=== PATIENT | male | born 1935 | race Caucasian/White ===

== ENCOUNTER 2017-01-28 06:35 | Day surgery (SDC) ==
[2015-03-09 10:31] VITALS: BMI 24.9
[2017-01-28] MEDS ORDERED: LIDOCAINE 1% 20 ML MDV ID ONE (07:20)
[2017-01-28] MEDS ORDERED: LIDOCAINE 1% 20 ML MDV ID STA (07:28)
[2017-01-28] MEDS ORDERED: ATROPINE SULFATE SDV IVP ONE (08:45)
[2017-01-28] MEDS ORDERED: DIPRIVAN 20 ML VIAL IVP ONE (08:45)
[2017-01-28] MEDS ORDERED: VERSED ONE (08:45)
[2017-01-28 09:34] VITALS: BP 125/63; TEMP 98
--- NOTE | 2017-01-29 08:04 | OP ---
PROCEDURE: COLONOSCOPY TO THE CECUM. ENDOSCOPIST: Fide ROSS M.D. INDICATION: HISTORY OF POLYPS LAST COLONOSCOPY: 5 YEARS PREVIOUS TO THIS EXAM INSTRUMENT: [id number]. MEDICATION: PER ANESTHESIA. PROCEDURE: The patient was positioned for colonoscopy. The digital rectal exam was negative. The colonoscope was inserted through the anus and advanced to the cecum. The patient again had mild bradycardia as we maneuvered through the left colon. One half amp of atrophin was given with appropriate response. The cecum was reached and identified using the ileocecal valve and the appendiceal orifice as landmarks. Careful inspection was made of each colonic segment. The scope was withdrawn in a circumferential fashion. Care was taken to expect the proximal side of the ileocecal valve, haustral fold, flexures and rectal valves. Diverticuli was seen in the colon and no other abnormalities were noted. The retroflex exam was negative. The patient was tolerated the procedure without immediate complication. PLAN: 1. At this point I suggest repeat colonoscopy as needed. 2. He can resume his Pradaxa today. 3. We will see on an as needed basis. CC: Dr. Gavino BELTRÁN
== END 2017-01-28 09:57 | disposition home or self-care (01) ==
LOC: SURG 06:35
PROVIDERS: ATTEND Internal Medicine Gastroenterology
DX: Z09 Encounter for follow-up examination after completed treatment for conditions other than malignant neoplasm (principal); Z86.010 Personal history of colon polyps; K57.30 Diverticulosis of large intestine without perforation or abscess without bleeding; R00.1 Bradycardia, unspecified

== ENCOUNTER 2017-03-27 17:39 | Emergency (ER) ==
[2017-03-27 17:46] VITALS: BMI 26.6
--- NOTE | 2017-03-27 18:33 | ED.PDOC ---
General Stated Complaint: painless hematuria Time Seen by Physician: 17:40 (painlesshematuria onset this morning) Mode of Arrival: Walk-In Information Source: Patient Exam Limitations: No limitations Referred to ED by: Other (seen with ruth at all times ) Nursing and Triage Documentation Reviewed and Agree: Yes Reviewed sepsis parameters & appropriate labs ordered?: Yes <ANNE-MARIE DURBIN - Last Filed: 03/27/17 18:30> <OKSANA VERDUGO - Last Filed: 03/27/17 20:04> ED Provider: Dr. OKSANA ROWLAND-ER Chief Complaint: Urinary Problem Primary Care Provider: OKSANA ROWLAND Sepsis Protocol: For patient's 13 years and over: Temp is 96.8 and below OR 101 and greater Pulse >90 BPM Resp >20/minute Acutely Altered Mental Status Are patient's symptoms suggestive of a new infection, such as: -Pneumonia -Skin, Soft Tissue -Endocarditis -UTI -Bone, Joint Infection -Implantable Device -Acute Abdominal Infection -Wound Infection -Meningitis -Blood Stream Catheter Infection -Unknown Complaint Exam - Complaint/Exam Onset/Duration: this morning 9 am painless hematuria on pradaxa for AFIB ABD HEART VALVE Symptoms Are: Resolved Timing: Intermittent Episodes of Voiding Over Last 12 Hours: 3 Initial Severity: Mild Current Severity: None Location of Pain: Reports: None Character: Reports: Bloody urine Aggravating: Reports: Voiding Alleviating: Reports: None Associated Signs and Symptoms: Reports: Hematuria. Denies: Diaphoresis, Back pain, Fever, Dysuria, Constipation, Blood in stool, Rectal pain, Appetite change , Nausea, Vomiting, Penile swelling, Penile discharge, Decreased urine output, Increased urine frequency, Increased thirst, Decreased activity, Lethargy, Scrotal pain, Scrotal swelling, Abdominal Pain Testicular Torsion Risk Factors: Reports: None Surgical Obstruction Risk Factors: Reports: None Related Surgical History: Reports: None Abdominal Findings: Present: None Prostate Exam: Nontender Differential Diagnoses: UTI, Ureteral Calculi, Other (RENAL CANCER , BLADDER CANCER , ) <ANNE-MARIE DURBIN - Last Filed: 03/27/17 18:30> Review of Systems - Review Of Systems Constitutional: Reports: No symptoms Eyes: Reports: No symptoms Ears, Nose, Mouth, Throat: Reports: No symptoms Respiratory: Reports: No symptoms Cardiac: Reports: No symptoms GI: Reports: No symptoms : Reports: Hematuria Musculoskeletal: Reports: No symptoms Skin: Reports: No symptoms Neurological: Reports: No symptoms Endocrine: Reports: No symptoms Hematologic/Lymphatic: Reports: No symptoms All Other Systems: Reviewed and Negative <ANNE-MARIE DURBIN - Last Filed: 03/27/17 18:30> Past Medical History - Past Medical History Previously Healthy: Yes Endocrine: Reports: Dyslipidemia Cardiovascular: Reports: CAD, Hypertension, A-Fib, Other (HEAR VALVE ) Respiratory: Reports: None Hematological: Reports: None Gastrointestinal: Reports: None Genitourinary: Reports: None Neuro/Psych: Reports: None Musculoskeletal: Reports: None Cancer: Reports: None - Surgical History General Surgical History: Reports: None - Family History Family History: Reports: None - Social History Smoking Status: Never smoker Hx Substance Use: No Alcohol Screening: None <ANNE-MARIE DURBIN - Last Filed: 03/27/17 18:30> Physical Exam - Physical Exam Appearance: Well-appearing, No pain distress, Well-nourished Eyes: BUSHRA, EOMI, Conjunctiva clear ENT: Ears normal, Nose normal, Oropharynx normal Respiratory: Airway patent, Breath sounds clear, Breath sounds equal, Respirations nonlabored Cardiovascular: RRR, Pulses normal, No rub, No murmur GI/: Soft, Nontender, No masses, Bowel sounds normal, No Organomegaly Musculoskeletal: Normal strength, ROM intact, No edema, No calf tenderness Skin: Warm, Dry, Normal color Neurological: Sensation intact, Motor intact, Reflexes intact, Cranial nerves intact, Alert, Oriented Psychiatric: Affect appropriate, Mood appropriate <ANNE-MARIE DURBIN - Last Filed: 03/27/17 18:30> Physician Notification - Case Discussed Physician Notified: PMD Time of Notification: 19:00 <ANNE-MARIE DURBIN - Last Filed: 03/27/17 18:30> Critical Care Note - Critical Care Note Total Time (mins): 0 <ANNE-MARIE DURBIN - Last Filed: 03/27/17 18:30> Course - Course Hematology/Chemistry: 03/27/17 18:39 03/27/17 18:39 <OKSANA VERDUGO - Last Filed: 03/27/17 20:04> - Course Orders, Labs, Meds: Lab Review 03/27/17 03/27/17 03/27/17 18:39 18:39 18:39 WBC 10.54 H RBC 3.98 L Hgb 13.2 L Hct 38.2 L MCV 96.0 H MCH 33.2 H MCHC 34.6 RDW Coeff of Ben 13.8 Plt Count 164 Immature Gran % (Auto) 1.1 Neut % (Auto) 50.4 Lymph % (Auto) 29.8 [place] % (Auto) 15.1 H Eos % (Auto) 2.8 Baso % (Auto) 0.8 Immature Gran # (Auto) 0.1 Neut # 5.3 Lymph # 3.1 [place] # 1.6 Eos # 0.3 Baso # 0.1 PT 14.9 H INR 1.48 APTT 51.8 H Sodium 139 Potassium 4.3 Chloride 110 H Carbon Dioxide 26 Anion Gap 7.3 BUN 26 H Creatinine 1.56 H Estimated GFR (MDRD) 43.00 BUN/Creatinine Ratio 16.66 Glucose 96 Calcium 9.1 Total Bilirubin 0.4 AST 23 ALT 19 Alkaline Phosphatase 47 L Total Protein 6.1 Albumin 3.4 Globulin 2.7 Albumin/Globulin Ratio 1.26 Urine Color Urine Clarity Urine pH Ur Specific [place] Urine Protein Urine Glucose (UA) Urine Ketones Urine Blood Urine Nitrite Urine Bilirubin Urine Urobilinogen Ur Leukocyte Esterase Urine Microscopic RBC Urine Microscopic WBC Ur Squamous Epith Cells 03/27/17 18:39 WBC RBC Hgb Hct MCV MCH MCHC RDW Coeff of Ben Plt Count Immature Gran % (Auto) Neut % (Auto) Lymph % (Auto) [place] % (Auto) Eos % (Auto) Baso % (Auto) Immature Gran # (Auto) Neut # Lymph # [place] # Eos # Baso # PT INR APTT Sodium Potassium Chloride Carbon Dioxide Anion Gap BUN Creatinine Estimated GFR (MDRD) BUN/Creatinine Ratio Glucose Calcium Total Bilirubin AST ALT Alkaline Phosphatase Total Protein Albumin Globulin Albumin/Globulin Ratio Urine Color Red Urine Clarity Turbid Urine pH >9.0 Ur Specific [place] 1.015 Urine Protein 3+ Urine Glucose (UA) 2+ Urine Ketones 4+ Urine Blood 3+ Urine Nitrite Pos Urine Bilirubin 3+ Urine Urobilinogen >8.0 Ur Leukocyte Esterase 3+ Urine Microscopic RBC Tntc Urine Microscopic WBC 0-2 Ur Squamous Epith Cells Not present Orders Category Date Time Status CBC W/ AUTO DIFF Stat LAB 03/27/17 18:39 Completed COMPREHENSIVE METABOLIC PANEL Stat LAB 03/27/17 18:39 Completed PARTIAL THROMBOPLASTIN TIME Stat LAB 03/27/17 18:39 Completed PT WITH INR Stat LAB 03/27/17 18:39 Completed URINALYSIS C & S IF INDICATED Stat LAB 03/27/17 18:[address] ABD/PEL WO RENAL STONE PROT Stat RADS 03/27/17 18:35 Completed Vital Signs: Temp Pulse Resp BP Pulse Ox 03/27/17 17:39 99.5 F 50 L 16 186/89 H 98 Departure - Departure Pt referred to PMD for follow-up: Yes IPMP verified?: Yes <ANNE-MARIE DURBIN - Last Filed: 03/27/17 18:30> - Departure Time of Disposition: 20:03 Transfer Form Completed: Yes Disposition Discussed With: Patient, Family <OKSANA VERDUGO - Last Filed: 03/27/17 20:04> - Departure Disposition: TSF SHORT-TRM HOSP Discharge Problem: Hematuria Qualifiers: Hematuria type: unspecified type Qualified Code(s): R31.9 - Hematuria, unspecified Instructions: Hematuria (ED) Condition: Good Additional Instructions: Please call your Family Physician as soon as possible to schedule a follow-up appointment. Allergies/Adverse Reactions: Allergies meperidine HCl [From Demerol] Adverse Reaction (Verified 03/27/17 17:49) metoclopramide [From Reglan] Adverse Reaction (Verified 03/27/17 17:49) sotalol HCl [From Betapace] Adverse Reaction (Verified 03/27/17 17:49) Home Medications: Ambulatory Orders Amlodipine Besylate [Norvasc] 5 mg PO BID 12/21/12 Atorvastatin Calcium [Lipitor] 10 mg PO DAILY 12/21/12 Dabigatran Etexilate Mesylate [Pradaxa] 150 mg PO DAILY 12/21/12 Lisinopril/Hydrochlorothiazide [Zestoretic 10-12.5 mg Tablet] 1 tab PO DAILY Montelukast Sodium [Singulair] 10 mg PO BEDTIME 12/21/12 Propafenone HCl [Rythmol] 300 mg PO Q12H 12/21/12 Allopurinol 300 mg PO DAILY 03/27/17 Hydrocodone Bit/Acetaminophen [H[place] 5-325] 1 each PO DIRECTED PRN 03/27/17 Metoprolol Tartrate [Lopressor] 25 mg PO BID 03/27/17
--- NOTE | 2017-03-27 19:56 | CT ---
EXAM: CT scan abdomen pelvis without contrast HISTORY: Hematuria COMPARISON: None. FINDINGS: Contiguous axial images obtained through the abdomen pelvis without contrast utilizing 3-m m collimation. Sagittal and coronal reconstructions were imaged and reviewed. The visualized lung ba ses are clear. There is small hiatal hernia. There has been prior cholecystectomy. Benign granulom atous changes are seen within the liver and spleen. "The pancreas and adrenal glands have normal une nhanced CT appearance. Multiple punctate nonobstructive calculi are seen within the left kidney. ". "There are multiple nonobstructive calculi within the right kidney, largest which measures 11 mm lo wer pole. Atherosclerotic changes are seen involving the aorta without aneurysm formation. Clips ar e seen adjacent to the cecum. There is a midline ventral hernia containing non incarcerated loop of transverse colon. . There is diverticulosis without diverticulitis.. 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 There is moderate prostatic enlargement. There is no free fluid. IMPRESSION: Nonobstructive bilateral nephrolithiasis. Prior cholecystectomy and probable appendectomy. Diverticulosis without diverticulitis. Midline ventral hernia containing non incarcerated loop of transverse colon. Moderate prostatic enlargement. Left-sided bladder diverticulum
[2017-03-27 20:12] VITALS: BP 167/55; TEMP 98.1
== END 2017-03-27 20:30 | disposition short-term general hospital (02) ==
LOC: ED 17:39
DX: R31.9 Hematuria, unspecified (principal); E78.5 Hyperlipidemia, unspecified; I25.10 Atherosclerotic heart disease of native coronary artery without angina pectoris; I10 Essential (primary) hypertension; I48.91 Unspecified atrial fibrillation; Z79.899 Other long term (current) drug therapy
CPT/HCPCS: 36415; 74176; 80053; 81001; 85025; 85610; 85730; 87086; 87186; 99285

== ENCOUNTER 2023-07-25 20:07 | Observation (INO) ==
[2023-07-25] MEDS: DUONEB NEB STA ×2 (20:23→22:13)
[2023-07-25] MEDS: CARDIZEM INJ IVP STA (20:24)
[2023-07-25 20:25] LABS: BASOPHILS # (AUTO) 0.1 K/uL (0-0.2); BASOPHILS % (AUTO) 0.7 % (0.0-3.0); EOSINOPHILS # (AUTO) 1.8 K/ul (0.0-0.7); EOSINOPHILS % (AUTO) 10.5 % (0.0-7.0); HEMATOCRIT 44.6 % (42.0-52.0); HEMOGLOBIN 14.3 g/dl (14.0-18.0); IMMATURE GRANULOCYTE # (AUTO) 0.1 (0.0-1.0); IMMATURE GRANULOCYTE % (AUTO) 0.7 % (0.0-5.0); LYMPHOCYTES # (AUTO) 5.7 K/uL (0.60-3.4); LYMPHOCYTES % (AUTO) 34.4 (10.0-50.0); MEAN CORPUSCULAR HEMOGLOBIN 32.6 pg (27.0-31.0); MEAN CORPUSCULAR HGB CONC 32.1 (31.8-35.4); MEAN CORPUSCULAR VOLUME 101.6 fl (80.0-94.0); MONOCYTES # (AUTO) 1.7 K/uL (0.4-2.0); MONOCYTES % (AUTO) 10.1 (0-10); NEUTROPHILS # (AUTO) 7.3 K/ul (2.0-6.9); NEUTROPHILS % (AUTO) 43.6 % (42.2-75.2); PLATELET COUNT 239 10^3/uL (140-440); RDW COEFFICIENT OF VARIATION 14.1 % (11.6-14.8); RED BLOOD COUNT 4.39 10^6/ul (4.70-6.10); WHITE BLOOD COUNT 16.65 K/ul (4.2-10.2)
[2023-07-25] MEDS: NITRO-BID TD STA (20:25)
[2023-07-25] MEDS: ASPIRIN CHEWABLE PO STA (20:25)
--- NOTE | 2023-07-25 20:33 | ED.PDOC ---
General ED Provider: Dr. ELLIOTT WOOD DO Chief Complaint: Shortness of Air Stated Complaint: 87-year-old male presents to the ER complaining of shortness of breath and chest pain. Started 2 hours prior to arrival. He said that he started coughing at home and then started to have chest pain that became persistent and he became progressively short of breath. He has a history of COPD, is not oxygen dependent, history of A-fib, takes an aspirin but states that he was taken off of other blood thinners. Chest pain is substernal nonradiating. No modifying factors. No treatment prior to arrival. Time Seen by Provider: 07/25/23 20:07 Mode of Arrival: Walk-In Primary Care Provider: OKSANA ROWLAND Nursing and Triage Documentation Reviewed and Agree: Yes What is Opioid Naive?: *Opioid Naive implies the patient is not already taking opioids or not chronically receiving opioids on a daily basis. *PRN dosing is not "usually" associated with tolerance. *Patients are at higher risk of over-sedation and aspiration. What is Opioid Tolerant?: *Opioid Tolerance implies less than the expected response to an opioid. *Acquired tolerance is defined by the patient taking 60mg of oral morphine daily (or equianalgesic dose of another opioid) for 1 week or more. *Often associated with chronic pain. *May take more than usual dose to achieve desired pain control. Review of Systems Review Of Systems Constitutional: Reports No symptoms All Other Systems: Reviewed and Negative [facility] Social History Smoking and tobacco status: Never smoker Physical Exam Physical Exam Appearance: Reports Ill-appearing and Well-nourished Ill-appearing: Severe Eyes: Reports BUSHRA, EOMI and Conjunctiva clear ENT: Reports Nose normal and Oropharynx normal Neck: Supple Respiratory: Reports Airway patent, Wheezes and Other (Accessory muscle use, broken sentences) Cardiovascular: Reports Irregular rhythm and Tachycardia Musculoskeletal: Reports Normal strength, ROM intact and No edema Skin: Reports Warm, Dry and Normal color Neurological: Reports Sensation intact, Motor intact, Alert and Oriented Psychiatric: Reports Affect appropriate and Mood appropriate Interpretation EKG Interpretation EKG Interpretation By: ED Physician Time of EKG #1: 20:16 Rate: Tachy Rhythm: Other (Atrial fibrillation with RVR) Ectopy: None [place]: [place] ST Segment: Normal Interpretation: A-fib RVR Critical Care Note Critical Care Note Total Critical Care Time (mins): 120 Comments: Critical care billing indicated for this patient with A-fib RVR requiring cardiac medications, constant cardiac monitoring, rate control medications, cardiac output measures, consideration of sepsis as well as thrombotic events as well as continuous breathing treatment and oxygen therapy Course Course 07/25/23 20:16 07/25/23 20:16 Orders, Labs, Meds: Lab Review 07/25/23 07/25/23 20:15 20:16 WBC 16.65 H RBC 4.39 L Hgb 14.3 Hct 44.6 MCV 101.6 H MCH 32.6 H MCHC 32.1 RDW Coeff of Ben 14.1 Plt Count 239 Immature Gran % (Auto) 0.7 Neut % (Auto) 43.6 Lymph % (Auto) 34.4 [place] % (Auto) 10.1 H Eos % (Auto) 10.5 H Baso % (Auto) 0.7 Neut # (Auto) 7.3 H Lymph # (Auto) 5.7 H [place] # (Auto) 1.7 Eos # (Auto) 1.8 H Baso # (Auto) 0.1 Immature Gran # (Auto) 0.1 PT 10.8 INR 1.04 APTT 28.1 Sodium 140.0 Potassium 3.42 L Chloride 104.2 Carbon Dioxide 30.0 Anion Gap 9.22 BUN 13.2 Creatinine 1.16 H Estimated GFR (MDRD) 60.00 BUN/Creatinine Ratio 11.37 Glucose 123.8 H Calcium 9.61 Magnesium 1.81 Total Bilirubin 0.52 AST 36.9 ALT 27.9 Alkaline Phosphatase 66.8 Troponin I < 0.012 NT-Pro-B Natriuret Pep 1460 H Total Protein 7.58 Albumin 4.44 Globulin 3.14 Albumin/Globulin Ratio 1.41 Influ A Molecular Assay Negative by naat Influ B Molecular Assay Negative by naat SARS CoV-2 RNA Rapid LEONOR Positive H Orders Category Date Time Status ADMIT OBSERVATION [PLACE PATIENT OBSERVATION] .TO ADMISSION 07/25/23 21:24 Ordered MEDSURG (MONITORED BED) EKG-(ED ONLY) Stat CARDIO 07/25/23 20:08 Completed NEBULIZER TREATMENT Stat CARDIO 07/25/23 20:11 Completed TELEMETRY MONITORING TELE CARE 07/25/23 21:24 Ordered CBC W/ AUTO DIFF Stat LAB 07/25/23 20:16 Completed CMP [COMPREHENSIVE METABOLIC PANEL] Stat LAB 07/25/23 20:16 Completed COVID [SARS COV-2 RNA RAPID LEONOR] Stat LAB 07/25/23 20:15 Completed ED PROBNP [NT-PROBNP(ED)] Stat LAB 07/25/23 20:16 Completed FLU A & B MOLECULAR [FLU A/B MOLECULAR] Stat LAB 07/25/23 20:15 Completed MAGNESIUM Stat LAB 07/25/23 20:16 Completed PT WITH INR Stat LAB 07/25/23 20:16 Completed PTT [PARTIAL THROMBOPLASTIN TIME] Stat LAB 07/25/23 20:16 Completed TROPONIN I Stat LAB 07/25/23 20:16 Completed Aspirin [Aspirin Chewable] Meds 07/25/23 20:07 Discontinued 324 mg PO ONCE STA Cefepime 2 gm/D5w [Maxipime 2 gm/50 ml D5w] Meds 07/25/23 21:20 Active 2 gm in 50 ml IV ONCE Diltiazem HCl [Cardizem Inj] Meds 07/25/23 20:15 Discontinued 20 mg IVP ONCE STA Furosemide [Lasix] Meds 07/25/23 21:24 Stat 20 mg IVP ONCE STA Ipratropium/Albuterol Neb [Duoneb] Meds 07/25/23 20:10 Discontinued 6 ml NEB ONCE STA Magnesium Sulfate [Magnesium Sulfate 1 gm/2 ml Vial] Meds 07/25/23 20:10 Discontinued 1 gm IVP ONCE ONE Methylprednisolone Sod Succ/Pf [Solu-Medrol 125 mg] Meds 07/25/23 20:10 Discontinued 125 mg IVP ONCE ONE Metoprolol Tartrate [Lopressor] Meds 07/25/23 20:41 Discontinued 10 mg IVP ONCE STA Nitroglycerin [Nitro-Bid] Meds 07/25/23 20:13 Discontinued 1 inch TD ONCE STA CHEST, 1V AP ONLY Stat RADS 07/25/23 20:08 Completed Medications Generic Name Dose Route Start Last Admin Trade Name Freq PRN Reason Stop Dose Admin CEFEPIME 2 GM/D5W 2 gm in 50 mls @ 100 mls/hr 07/25/23 21:20 Maxipime 2 Gm/50 Ml D5w IV 07/25/23 21:49 ONCE ONE Discontinued Medications Generic Name Dose Route Start Last Admin Trade Name Freq PRN Reason Stop Dose Admin Albuterol/Ipratropium 6 ml 07/25/23 20:10 07/25/23 20:23 Ipratropium/Albuterol Vial.Neb NEB 07/25/23 20:11 6 ml ONCE STA Administration Aspirin 324 mg 07/25/23 20:07 07/25/23 20:25 Aspirin 81 Mg Tab.Chew PO 07/25/23 20:08 324 mg ONCE STA Administration Diltiazem HCl 20 mg 07/25/23 20:15 07/25/23 20:24 Diltiazem Hcl Inj 25 Mg/5 Ml Vial IVP 07/25/23 20:16 20 mg ONCE STA Administration Magnesium Sulfate 1 gm 07/25/23 20:10 07/25/23 20:37 Magnesium Sulfate Vial 1 Gm/2 Ml Vial IVP 07/25/23 20:11 1 gm ONCE ONE Administration Methylprednisolone Sodium Succinate 125 mg 07/25/23 20:10 07/25/23 20:37 Methylprednisolone Sod Succ/Pf 125 Mg/2 Ml Vial IVP 07/25/23 20:11 125 mg ONCE ONE Administration Metoprolol Tartrate 10 mg 07/25/23 20:41 07/25/23 20:50 Metoprolol Tartrate 5 Mg/5 Ml Vial IVP 07/25/23 20:42 10 mg ONCE STA Administration Nitroglycerin 1 inch 07/25/23 20:13 07/25/23 20:25 Nitroglycerin 1 Gm Oint TD 07/25/23 20:14 1 inch ONCE STA Administration Vital Signs: Temp Pulse Resp BP Pulse Ox 07/25/23 20:09 98.3 F 127 H 37 H 207/160 H 88 L LUZ MARINA Risk Score LUZ MARINA Risk Score: Risk Score Odds of by 30D 0 0.1 (0.1-0.2) 1 0.3 (0.2-0.3) 2 0.4 (0.3-0.5) 3 0.7 (0.6-0.9) 4 1.2 (1.0-1.5) 5 2.2 (1.9-2.6) 6 3.0 (2.5-3.6) 7 4.8 (3.8-6.1) Physician Progress Note: 87-year-old male presents to the ER complaining of shortness of breath and chest pain. He has heart rate in the 130s to 150s. Suspect A-fib RVR. Will use diltiazem. Suspect chest pain is rate related. He is hypertensive on presentation therefore will place some nitroglycerin on his chest. Will keep a close eye on this. Will obtain laboratory workup to include cardiac enzymes and BNP. Will give breathing treatments. Consider positive pressure ventilation as needed. Afebrile nontoxic doubt infectious etiology to include sepsis. Unlikely other cardiopulmonary processes to include not limited to ACS, UT, PE, pneumothorax, dissection or tamponade. [] 2032: After giving 20 mg diltiazem, heart rate has come down to the low to mid 80s. Remains in atrial fibrillation. Tolerating the breathing treatment well. Oxygen saturation 100%. Blood pressure is improving. Currently 156/100. Patient states that he is feeling better. 2125: Patient appears better. Blood pressure is improved. Continues rate controlled. He does require supplemental oxygen. I discussed this with the hospital service who was gracious to accept for observation. Discharge Plan Discharge Patient Disposition: PLACED OBSERVATION Discharge Problem: Atrial fibrillation with rapid ventricular response, Shortness of breath, Chest pain, COVID Prescriptions: No Action atorvastatin 10 MG tablet 10 mg PO DAILY montelukast [Singulair] 10 MG tablet 10 mg PO BEDTIME allopurinol 300 MG tablet 300 mg PO DAILY metoprolol tartrate 25 MG tablet 25 mg PO BID aspirin 81 mg tablet,delayed release (DR/EC) 81 mg PO DAILY cranberry 1,000 mg capsule 1,000 mg PO DAILY Rx Instructions: administer with a meal ipratropium bromide 21 mcg (0.03 %) spray,non-aerosol 2 spray INTRANASAL BID Patient Comments: INSTILL 2 SPRAYS INTO EACH NOSTRIL EVERY 12 HOURS DIRECTED isosorbide mononitrate 60 mg tablet extended release 24 hr 60 mg PO TID Patient Comments: TAKE 1 TABLET BY MOUTH DAILY levothyroxine 50 mcg tablet 50 mcg PO DAILY lisinopril 20 mg tablet 20 mg PO DAILY azithromycin 250 mg tablet 250 mg PO DAILY Rx Instructions: Take 1 tablet by mouth daily. Take 2 tablets the first day, then 1 tablet daily for 4 days. Started 05/21/23 furosemide 20 mg tablet 20 mg PO BID Rx Instructions: For 3 days started 05/21/23 methylprednisolone 4 mg tablets,dose pack See Rx Instructions .ROUTE .COMPLEX Rx Instructions: Take per pkg directions; Take as directed on pkg instructions; started 05/21/23 potassium chloride 10 mEq tablet extended release 10 meq PO DAILY Rx Instructions: For 3 days; started 05/21/23 albuterol sulfate 90 mcg/actuation HFA aerosol inhaler 2 puff INHALATION Q4H PRN (Reason: shortness of breath or wheezing) levetiracetam 500 mg tablet 500 mg PO BID Did you review [place] [facility] CONSULTANT for ALL controlled substances?: Not Applicable ED Provider: ELLIOTT WOOD Condition: Stable
[2023-07-25 20:37] LABS: ALANINE AMINOTRANSFERASE 27.9 U/L (0-50); ALBUMIN 4.44 g/dL (3.5-5.0); ALKALINE PHOSPHATASE 66.8 U/L (56-119); ASPARTATE AMINO TRANSFERASE 36.9 U/L (17-59); BILIRUBIN,TOTAL 0.52 mg/dL (0.2-1.3); BLOOD UREA NITROGEN 13.2 mg/dL (9-20); CALCIUM 9.61 mg/dL (8.4-10.2); CHLORIDE 104.2 mmol/L (98-107); CREATININE 1.16 mg/dL (0.60-1.10); GLUCOSE 123.8 mg/dL (74-106); POTASSIUM 3.42 mmol/L (3.5-5.1); TOTAL PROTEIN 7.58 g/dL (6.3-8.2)
[2023-07-25] MEDS: SOLU-MEDROL 125 MG IVP ONE (20:37)
[2023-07-25] MEDS: MAGNESIUM SULFATE 1 GM/2 ML VIAL IVP ONE (20:37)
[2023-07-25 20:42] LABS: PARTIAL THROMBOPLASTIN TIME 28.1 SEC (23.9-40.0); PROTHROMBIN TIME 10.8 SEC (9.3-11.0)
[2023-07-25 20:49] LABS: TROPONIN I < 0.012 ng/ml (0.0000-0.120)
[2023-07-25] MEDS: LOPRESSOR IVP STA (20:50)
[2023-07-25 21:04] LABS: SARS COV-2 RNA RAPID NAAT POSITIVE (NEGATIVE)
[2023-07-25 21:06] LABS: MOLECULAR FLU A NEGATIVE BY NAAT (NEGATIVE); MOLECULAR FLU B NEGATIVE BY NAAT (NEGATIVE)
--- NOTE | 2023-07-25 21:16 | DI ---
EXAM: SINGLE VIEW OF THE CHEST. History: Chest pain, short of breath Findings: Heart size is upper limits of normal. Sternotomy wires. Artificial heart valve. No cons olidation. No pleural fluid and no pneumothorax. No acute osseous abnormalities. Impression: No acute cardiopulmonary process
[2023-07-25] MEDS ORDERED: ALBUTEROL 0.083% NEB NEB PRN (21:44)
[2023-07-25] MEDS ORDERED: TYLENOL PO PRN (21:47)
[2023-07-25] MEDS: LASIX IVP STA (22:40)
[2023-07-25] MEDS: MAXIPIME 2 GM/50 ML D5W 2 GM/50 ML BAG IV ONE (22:40)
[2023-07-25] MEDS: K-DUR PO ONE (23:02)
[2023-07-26] MEDS: DUONEB NEB SCH (00:04)
[2023-07-26] MEDS: KEPPRA PO SCH (00:10)
[2023-07-26 00:11] VITALS: BMI 26.6
[2023-07-26] MEDS: LOPRESSOR PO SCH (00:11)
[2023-07-26] MEDS: SOLU-MEDROL 40 MG IVP SCH (04:39)
[2023-07-26 05:17] LABS: BASOPHILS % (AUTO) 0.3 % (0.0-3.0); EOSINOPHILS % (AUTO) 0.1 % (0.0-7.0); HEMATOCRIT 40.6 % (42.0-52.0); HEMOGLOBIN 13.2 g/dl (14.0-18.0); IMMATURE GRANULOCYTE # (AUTO) 0.1 (0.0-1.0); IMMATURE GRANULOCYTE % (AUTO) 1.4 % (0.0-5.0); LYMPHOCYTES # (AUTO) 1.2 K/uL (0.60-3.4); MEAN CORPUSCULAR HEMOGLOBIN 32.9 pg (27.0-31.0); MEAN CORPUSCULAR HGB CONC 32.5 (31.8-35.4); MEAN CORPUSCULAR VOLUME 101.2 fl (80.0-94.0); MONOCYTES # (AUTO) 0.1 K/uL (0.4-2.0); MONOCYTES % (AUTO) 1.8 (0-10); NEUTROPHILS # (AUTO) 5.7 K/ul (2.0-6.9); NEUTROPHILS % (AUTO) 79.4 % (42.2-75.2); PLATELET COUNT 195 10^3/uL (140-440); RDW COEFFICIENT OF VARIATION 13.9 % (11.6-14.8); RED BLOOD COUNT 4.01 10^6/ul (4.70-6.10)
[2023-07-26 05:18] LABS: WHITE BLOOD COUNT 7.23 K/ul (4.2-10.2)
[2023-07-26 05:27] LABS: ALANINE AMINOTRANSFERASE 25.9 U/L (0-50); ALBUMIN 4.25 g/dL (3.5-5.0); ASPARTATE AMINO TRANSFERASE 31.6 U/L (17-59); BILIRUBIN,TOTAL 0.62 mg/dL (0.2-1.3); BLOOD UREA NITROGEN 13.9 mg/dL (9-20); CALCIUM 9.65 mg/dL (8.4-10.2); CARBON DIOXIDE 26.1 mmol/L (22-30.0); CHLORIDE 105.6 mmol/L (98-107); CREATININE 0.91 mg/dL (0.60-1.10); POTASSIUM 4.29 mmol/L (3.5-5.1); SODIUM 137.7 mmol/L (134.5-145); TOTAL PROTEIN 7.15 g/dL (6.3-8.2)
[2023-07-26] MEDS ORDERED: LEVAQUIN 500 MG/100 ML D5W 500 MG/100 ML BAG IV SCH (09:00)
--- NOTE | 2023-07-26 09:16 | PCM.SS ---
Provider Provider: ROWAN D ELA O, [facility] Admission Date Admission Date: 07/25/23 Discharge Date Discharge Date: 07/26/23 Primary Care Physician Primary Care Physician: OKSANA ROWLAND Chief Complaint Reason For Visit: AFIB W/ RVR, SOB, CHEST PAIN, COVID+ History of Present Illness History of Present Illness: Admitted 07/25/23 21:45, this 87 year old /WHITE/M presented to the ER last night with chest pain/shortness of breath. States that he started feeling "bad" around 1300 yesterday afternoon. Presented to the ER and was found to be in Afib RVR. He was given a dose of diltiazem that returned heart rate to normal. He was then given an additional dose of lopressor to continue to rate control. Rhythm remains in Afib. O2 sat was in upper 80s. Required 4L via NC to return O2 sat to upper 90s. He was given steroids, nebs, and cefepime. Admitted to med/surg observation. At this time, patient says his symptoms have resolved and he feels much better. 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) Skin cancer C44.90 - Unspecified malignant neoplasm of skin, unspecified (ICD-10) COPD (chronic obstructive pulmonary disease) J44.9 - Chronic obstructive pulmonary disease, unspecified (ICD-10) Hypertension I10 - Essential (primary) hypertension (ICD-10) Heart valve disease I38 - Endocarditis, valve unspecified (ICD-10) Coronary artery arteriosclerosis I25.10 - Atherosclerotic heart disease of hoh coronary artery without angina pectoris (ICD-10) Surgical History Hx of appendectomy Z90.49 - Acquired absence of other specified parts of digestive tract (ICD- 10) 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 (ICD-10) Social History Smoking and tobacco status: Never smoker Alcohol intake: never Medications Mecications: Medications at Discharge (Home Meds & RX) atorvastatin 10 mg tablet 10 mg PO DAILY 12/21/12 montelukast 10 mg tablet (Singulair) 10 mg PO DAILY 12/21/12 allopurinol 300 mg tablet 300 mg PO DAILY 03/27/17 metoprolol tartrate 25 mg tablet 37.5 mg PO BID 03/27/17 albuterol sulfate 90 mcg/actuation aerosol inhaler 2 puff inhalation Q4H PRN shortness of breath or wheezing 05/22/23 aspirin 81 mg tablet,delayed release 81 mg PO DAILY 05/22/23 ipratropium bromide 21 mcg (0.03 %) nasal spray 2 spray intranasal BID 05/22/23 isosorbide mononitrate 60 mg tablet,extended release 24 hr 60 mg PO DAILY 05/22/23 levetiracetam 500 mg tablet 500 mg PO BID 05/22/23 levothyroxine 50 mcg tablet 50 mcg PO DAILY 05/22/23 lisinopril 20 mg tablet 20 mg PO DAILY 07/26/23 Allergies Allergies Allergy/AdvReac Type Severity Reaction Status Date / Time meperidine HCl [From Demerol] AdvReac Unknown Verified 07/25/23 20:23 metoclopramide [From Reglan] AdvReac Unknown Verified 07/25/23 20:23 sotalol HCl [From Betapace] AdvReac Unknown Verified 07/25/23 20:23 Review of Systems Constitutional: Reports Fatigue Head: Reports Normocephalic Eyes: Reports No symptoms Ears: Reports No symptoms Nose: Reports No symptoms Mouth: Reports No symptoms Throat: Reports No symptoms Cardiovascular: Reports Chest pain, High Blood Pressure and Palpitations Respiratory: Reports Cough and Shortness of air Gastrointestinal: Reports No symptoms Genitourinary: Reports No Symptoms Musculoskeletal: Reports No symptoms Endocrine: Reports No symptoms Hematology: Reports No symptoms Immunology: Reports No symptoms Neurological: Reports No symptoms Psychiatric: Reports No symptoms Physical Examination Appearance: Positive No Apparent Distress and Alert and Oriented x3 Head: Positive Normocephalic Eyes: Positive BUSHRA Neck: Positive Supple, Non-Tender and Trachea Midline Heart: Positive RRR and No Murmurs Respiratory: Positive Airway patent, Breath Sounds Clear, Bilaterally, Breath Sounds Equal, Respirations Nonlabored and Wheezes (MILD, RIGHT UPPER LOBE) GI/: Positive Soft, Nontender, Bowel sounds normal and No Distention Extremities: Positive Pedal Pulses Palpable Bilaterally Neurological: Positive Sensation Intact, Motor Intact, Alert and Oriented Vital Signs (Last 4 Hours) Vital Signs Last 4 Hours: Vital Signs: Last 4 Hours 07/26/23 05:23 07/26/23 05:40 07/26/23 05:41 Temperature 97.3 F L Temperature Source Temporal Artery Scan Pulse Rate 82 Pulse Rate [Apical] Respiratory Rate 23 H Blood Pressure 133/90 Blood Pressure Mean 104 Blood Pressure Location Left Arm Blood Pressure Position Supine O2 Sat by Pulse Oximetry 97 Oxygen Delivery Method Nasal Cannula Nasal Cannula Oxygen Flow Rate 4 Weight 207 lb 5 oz Telemetry Type Telemetry Monitoring Irregular Telemetry Rate (Approximate) EKG QRS Interval Telemetry Strip Reading 07/26/23 05:42 07/26/23 07:00 07/26/23 07:00 Temperature Temperature Source Pulse Rate Pulse Rate [Apical] Respiratory Rate Blood Pressure Blood Pressure Mean Blood Pressure Location Blood Pressure Position O2 Sat by Pulse Oximetry 99 Oxygen Delivery Method Nasal Cannula Room Air Oxygen Flow Rate 2 Weight Telemetry Type Bedside Monitor Telemetry Monitoring Continues Irregular Telemetry Rate (Approximate) 80-90 BPM EKG QRS Interval 0.08 Telemetry Strip Reading Afib 07/26/23 07:35 07/26/23 08:00 07/26/23 09:00 Temperature Temperature Source Pulse Rate Pulse Rate [Apical] 90 Respiratory Rate Blood Pressure Blood Pressure Mean Blood Pressure Location Blood Pressure Position O2 Sat by Pulse Oximetry Oxygen Delivery Method Room Air Room Air Room Air Oxygen Flow Rate Weight Telemetry Type Telemetry Monitoring Irregular Telemetry Rate (Approximate) EKG QRS Interval Telemetry Strip Reading Labs This Visit Labs This Visit: Labs This Visit 07/25/23 07/25/23 07/26/23 20:15 20:16 05:09 WBC 16.65 H 7.23 D RBC 4.39 L 4.01 L Hgb 14.3 13.2 L Hct 44.6 40.6 L MCV 101.6 H 101.2 H MCH 32.6 H 32.9 H MCHC 32.1 32.5 RDW Coeff of Ben 14.1 13.9 Plt Count 239 195 Immature Gran % (Auto) 0.7 1.4 Neut % (Auto) 43.6 79.4 H Lymph % (Auto) 34.4 17.0 Mccormick % (Auto) 10.1 H 1.8 Eos % (Auto) 10.5 H 0.1 Baso % (Auto) 0.7 0.3 Neut # (Auto) 7.3 H 5.7 Lymph # (Auto) 5.7 H 1.2 Mccormick # (Auto) 1.7 0.1 L Eos # (Auto) 1.8 H 0.0 Baso # (Auto) 0.1 0.0 Immature Gran # (Auto) 0.1 0.1 PT 10.8 INR 1.04 APTT 28.1 Sodium 140.0 137.7 Potassium 3.42 L 4.29 Chloride 104.2 105.6 Carbon Dioxide 30.0 26.1 Anion Gap 9.22 10.29 BUN 13.2 13.9 Creatinine 1.16 H 0.91 Estimated GFR (MDRD) 60.00 79.00 BUN/Creatinine Ratio 11.37 15.27 Glucose 123.8 H 163.0 H Calcium 9.61 9.65 Magnesium 1.81 Total Bilirubin 0.52 0.62 AST 36.9 31.6 ALT 27.9 25.9 Alkaline Phosphatase 66.8 54.0 L Troponin I < 0.012 NT-Pro-B Natriuret Pep 1460 H Total Protein 7.58 7.15 Albumin 4.44 4.25 Globulin 3.14 2.90 Albumin/Globulin Ratio 1.41 1.46 Influ A Molecular Assay Negative by naat Influ B Molecular Assay Negative by naat SARS CoV-2 RNA Rapid LEONOR Positive H Imaging Imaging: EXAM: SINGLE VIEW OF THE CHEST. History: Chest pain, short of breath Findings: Heart size is upper limits of normal. Sternotomy wires. Artificial heart valve. No consolidation. No pleural fluid and no pneumothorax. No acute osseous abnormalities. Impression: No acute cardiopulmonary process Review Review Statement: I have independently reviewed and interpreted the labs/EKGs/imaging that were ordered by the ER provider. I have reviewed all outside records that are available currently in our EMR including imaging/notes/labs from previous v isits. Plan Reccomendations/Plan: 1. Acute Hypoxic Respiratory Failure in setting of A fib RVR and COPD exacerbation - Resolved, has been on RA since admission, steroids, nebs 2. COPD exacerbation - levaquin, steroids, nebs 3. Atrial Fib with RVR - resolved in ER, continue home metoprolol, rate controlled at this time, does not take anticoagulation per Cardiology recommendation 4. Hypertension - chronic, elevated in ER last night, resolved overnight, continue home medications 5. Covid-19 - had Covid the end of June/beginning of July, asymptomatic, continuing to test positive Additional Planning: Case discussed with ED Physician, Dr. Gómez. DVT Prophylaxis: Ambulation Disposition: Admit to: Med/Surg Observation DNR Discussed Plan of Care with Dr. Marin Lee. If patient discharged with Left Ventricular Systolic Dysfunction: NA Discharged with a beta angel? [] If no, why not? [] Discharged with an duc/arb? [] If no, why not? [] DIAGNOSIS: ATRIAL FIBRILLATION, COPD DIET: REGULAR ACTIVITY: TOLERATED FOLLOW-UP WITH PCP NEXT WEEK MEDICATIONS: LEVAQUIN 500 MG DAILY X 6 DAYS, PREDNISONE 20 MG DAILY X 5 DAYS START BOTH OF THESE MEDICATIONS TOMORROW Review With Patient Reviewed with Patient and Family: Patient and family have been counseled on condition and care plan and have no immediate questions. I have personally discussed and reviewed the patient's visit/current lab s/imaging/decision making with Dr. Chris Lee, my supervising attending. Total number of minutes spent with patient 85 min. More than 50% of the time spent with this patient was devoted to counseling and coordination of care. Time of Admission:07/25/23 21:45 Time of Discharge: 07/26/23 09:25 Discharge Plan Discharge Discharge Orders: Discharge Patient (ONCE); Ordered 07/26/23 Ordered By: ROMINA SUERO Activity Restrictions/Additional Instructions: DIAGNOSIS: ATRIAL FIBRILLATION, COPD DIET: REGULAR ACTIVITY: TOLERATED FOLLOW-UP WITH PCP NEXT WEEK MEDICATIONS: LEVAQUIN 500 MG DAILY X 6 DAYS, PREDNISONE 20 MG DAILY X 5 DAYS START BOTH OF THESE MEDICATIONS TOMORROW Instructions: A-fib (Atrial Fibrillation) (GEN), COPD (Chronic Obstructive Pulmonary Disease) (GEN) Patient Disposition: HOME WITH FAMILY CARE Prescriptions: New levofloxacin 500 mg tablet 500 mg PO DAILY Qty: 6 0RF prednisone 10 mg tablet 10 mg PO DAILY Qty: 5 0RF Continued atorvastatin 10 MG tablet 10 mg PO DAILY montelukast [Singulair] 10 MG tablet 10 mg PO DAILY allopurinol 300 MG tablet 300 mg PO DAILY metoprolol tartrate 25 MG tablet 37.5 mg PO BID aspirin 81 mg tablet,delayed release (DR/EC) 81 mg PO DAILY ipratropium bromide 21 mcg (0.03 %) spray,non-aerosol 2 spray INTRANASAL BID Patient Comments: INSTILL 2 SPRAYS INTO EACH NOSTRIL EVERY 12 HOURS DIRECTED isosorbide mononitrate 60 mg tablet extended release 24 hr 60 mg PO DAILY Patient Comments: TAKE 1 TABLET BY MOUTH DAILY levothyroxine 50 mcg tablet 50 mcg PO DAILY albuterol sulfate 90 mcg/actuation HFA aerosol inhaler 2 puff INHALATION Q4H PRN (Reason: shortness of breath or wheezing) levetiracetam 500 mg tablet 500 mg PO BID lisinopril 20 mg tablet 20 mg PO DAILY Did you review [place] [employer]UD [employer] for ALL controlled substances?: No Discussed opioids are addictive and Narcan is available by prescription or from pharmacy.: No Condition: Stable
[2023-07-26 10:08] VITALS: BP 112/73
[2023-07-26 10:09] VITALS: PULSE 97; RESP 21; TEMP 97.6
[2023-07-26] MEDS: LOVENOX SUBCUT SCH (10:23)
[2023-07-26] MEDS: LIPITOR PO SCH (10:23)
[2023-07-26] MEDS: ZYLOPRIM PO SCH (10:24)
[2023-07-26] MEDS: ZESTRIL PO SCH (10:24)
[2023-07-26] MEDS: SINGULAIR PO SCH (10:24)
[2023-07-26] MEDS: IMDUR PO SCH (10:24)
[2023-07-26] MEDS: LEVAQUIN PO ONE (10:25)
[2023-07-26] MEDS: SYNTHROID PO SCH (10:25)
[2023-07-26] MEDS: ASPIRIN EC PO SCH (10:26)
== END 2023-07-26 11:00 | disposition home or self-care (01) ==
LOC: SCU 20:07 → ED 20:07 → SCU 23:31
PROVIDERS: ADMIT Hospitalist; ATTEND Nurse Practitioner Family
DX: I48.91 Unspecified atrial fibrillation; Z51.81 Encounter for therapeutic drug level monitoring; J44.1 Chronic obstructive pulmonary disease with (acute) exacerbation; U07.1 COVID-19; J96.01 Acute respiratory failure with hypoxia; I10 Essential (primary) hypertension; Z79.899 Other long term (current) drug therapy; R07.9 Chest pain, unspecified